=== PATIENT | male | born 1990 | race African-American/Black ===

== ENCOUNTER 2021-02-23 09:13 | Emergency (ER) | payer SELFPAY ==
[~2021-02-23] VITALS: Ht 180.3 cm; Wt 79.4 kg
[2021-02-23 09:22] VITALS: BP 149/114
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
[2021-02-23] MEDS ORDERED: IBUPROFEN 600 MG TABLET ONE (09:43)
--- NOTE | 2021-02-23 09:51 | NUR ---
Patient eloped from facility. Dr Mares notified.
[2021-02-23] MEDS ORDERED: IBUPROFEN 600 MG TABLET PO ONE (10:00)
== END 2021-02-23 09:53 | disposition left against medical advice (07) ==
LOC: ER 09:17
DX: S50.12XA Contusion of left forearm, initial encounter (principal); S80.12XA Contusion of left lower leg, initial encounter; Z60.2 Problems related to living alone; V49.49XA Driver injured in collision with other motor vehicles in traffic accident, initial encounter; Y93.89 Activity, other specified; Y92.488 Other paved roadways as the place of occurrence of the external cause; Y99.8 Other external cause status